=== PATIENT | male | born 1955 | race Caucasian/White ===

== ENCOUNTER 2018-07-25 08:28 | Outpatient (CLI) | payer OTHER ==
[2018-07-25] MEDS ORDERED: GADOBUTROL 10 MMOL/10 ML VIAL ONE (08:37)
[2018-07-25] MEDS ORDERED: GADOBUTROL 10 MMOL/10 ML VIAL IVP ONE (10:28)
--- NOTE | 2018-07-25 12:44 | MRI Report ---
Reason: DISORDER OF PITUITARY GLAND, UNSPECIFIED,DIPLOPIA Procedure Date: 07/25/2018 Accession Number: [id number] / [id number] Procedure: MRI - Brain W/WO CPT Code: FULL RESULT: MRI BRAIN WITHOUT AND WITH CONTRAST INDICATION: 63-year-old male with painless, monocular visual loss, diplopia and hypogonadism. Concern for pituitary adenoma or other mass. TECHNIQUE: Imaging of the brain has been performed with additional sequences dedicated towards evaluation of the pituitary gland. Sequences include the followin. Routine T1 sagittal and fat saturated T2 coronal (brain). 2. Axial T1 MP RAGE, FLAIR, T2* and DWI. 3. Thin slice T2 and T1 coronal (sella). 4. 10 mL IV Gadavist. Dynamic pituitary imaging was performed in the coronal plane. In addition, thin slice, high resolution, static, postcontrast T1 sagittal and coronal sequences were performed through the sella. A routine T1 3D MP RAGE axial sequence was also performed through the brain. COMPARISON: None. FINDINGS: Pituitary/sella On T1 sagittal sequence through the brain, there appears to be a normal T1 hyperintense neurohypophysis in the posterior aspect of the sella (see image 12 of series 301). The sella is not enlarged. The pituitary has a normal size for a 63-year-old male. The pituitary gland measures roughly 4 mm in maximal height. There is a subtle T2 hyperintense, markedly T1 hypointense and nonenhancing focus superiorly in the right lateral aspect of the adenohypophysis. It measures about 4 mm in maximal AP (image 7 of series 1301) by roughly 4 mm maximal transverse (image 5 of series 901) and about 2 mm maximal craniocaudad (image 5 series 901). No other focal abnormality is identified within the pituitary. There is minor displacement of the infundibulum towards the left. No asymmetric depression of the sellar floor is demonstrated. The cavernous sinuses and other parasellar structures have a normal appearance. No suprasellar mass is demonstrated. The optic chiasm is normal and noncompressed. Brain There is mild generalized prominence of the cerebral cortical sulci, considered well within normal limits for stated age. Ventricular size is normal. No hydrocephalus. A mild amount of white matter disease is identified in the supratentorial brain, manifested as small T2 hyperintensities that are scattered throughout the frontoparietal white matter. A deep/subcortical distribution predominates. There appears to be little if any involvement of the immediate periventricular regions. Signal intensity of cortex and white matter is otherwise unremarkable. There appear to be flow voids for the main intracranial arteries. No abnormal diffusion restriction is demonstrated. No evidence of acute or chronic hemorrhage on T2* GRE sequence. No enhancing space-occupying mass lesion is demonstrated. No pathologic meningeal or cranial nerve enhancement is identified. There appears to be normal intravascular contrast enhancement in the dural venous sinuses and deep venous structures. Evaluation of the orbits is limited on sequences provided. However, on the T2 coronal sequence from pituitary study, there appears to be asymmetric atrophy involving the intracranial portion of the right optic nerve, extending from posterior margin of the optic canal to the chiasm. There is no evidence of planum sphenoidale meningioma or other compressive lesion. No obvious intraorbital mass or other intraorbital pathology is identified. Mucosal thickening is seen scattered throughout the paranasal sinuses. No air-fluid levels demonstrated. No mastoid or middle ear effusion. Marrow signal intensity of the regional skeletal structures is unremarkable. IMPRESSION: 1. There is a small T2 hyperintense/T1 hypointense and nonenhancing lesion in the superior aspect of the right lateral adenohypophysis as described. This may represent a benign pituitary cyst or could potentially represent a cystic microadenoma. Imaging of the pituitary is otherwise unremarkable. In particular, no suprasellar mass is demonstrated. The optic chiasm is noncompressed. 2. A detailed study of the orbits and optic apparatus has not been performed; however, there does appear to be asymmetric atrophy involving the intracranial segment of the right optic nerve when compared to left optic nerve on the T2 coronal sequence of from pituitary study. No evidence of planum sphenoidale meningioma or other compressive intracranial mass. Limited evaluation of the orbits reveals no obvious intraorbital lesion. 3. A very mild amount of white matter disease is identified in the supratentorial brain, likely representing chronic microangiopathy. 4. Imaging of the brain is otherwise unremarkable.
== END 2018-07-25 08:29 | disposition home or self-care (01) ==
LOC: DI 08:28
PROVIDERS: ATTEND Physician Assistant
DX: E23.7 Disorder of pituitary gland, unspecified (principal); H53.459 Other localized visual field defect, unspecified eye; H53.2 Diplopia; H47.20 Unspecified optic atrophy
CPT/HCPCS: 70553; A9585

== ENCOUNTER 2018-11-12 12:07 | Day surgery (SDC) | payer OTHER ==
[2018-11-12] MEDS ORDERED: BUPIVACAINE 0.25% PF 30 ML VIAL ONE (12:08)
[2018-11-12] MEDS ORDERED: EPINEPHrine 1 MG/ML AMP ONE (12:09)
[2018-11-12] MEDS ORDERED: LACTATED RINGERS 1,000 ML IV ONE (12:13)
[2018-11-12] MEDS ORDERED: ceFAZolin 2 GM/50 ML 2 GM/50 ML BAG IV ONE (12:15)
--- NOTE | 2018-11-12 13:42 | ANESTHESIA ---
Pre-Anesthesia VS, & Labs - Diagnosis left knee meniscus tear - Procedure Left knee scope meniscus debridement Vital Signs: Temp Pulse Resp BP Pulse Ox 36.0 C L 80 16 150/95 H 96 11/12/18 12:24 11/12/18 12:24 11/12/18 12:24 11/12/18 12:24 11/12/18 12:24 Height 5 ft 11 in Weight (kg) 100.7 kg - NPO >8 hours Home Medications and Allergies Home Medications: Ambulatory Orders Latanoprost/Pf [Latanoprost 0.005% Eye Drop] 7.5 ml OP 11/06/18 Timolol 0.5% Ophth Drops [Timoptic 0.5% Ophth Drops] 1 drops OPTH BID 11/06/18 Aspirin [Aspir-Low] 81 mg PO DAILY 02/12/16 Simvastatin [Zocor] 40 mg PO DAILY 02/12/16 Latanoprost/Pf [Latanoprost 0.005% Eye Drop] 7.5 ml OP 11/06/18 Timolol 0.5% Ophth Drops [Timoptic 0.5% Ophth Drops] 1 drops OPTH BID 11/06/18 Vit. C Allergies/Adverse Reactions: Allergies Allergy/AdvReac Type Severity Reaction Status Date / Time atorvastatin Allergy Anxiety Verified 11/06/18 08:41 Anes History & Medical History - Anesthetic History Family history of Anesthesia Complications: Denies Family history of Malignant Hyperthermia: Denies - Medical History Cardiovascular: reports: High cholesterol Pulmonary: reports: None Gastrointestinal: reports: None Urinary: reports: None Neuro: reports: None Musculoskeletal: reports: None Endocrine/Autoimmune: reports: None Blood Disorders: reports: None Skin: reports: None Smoking Status: Never smoker Psychosocial: reports: Alcohol ( 2 drinks/day), Other (history of PTSD) - Surgical History General: Colonoscopy Exam General: Alert, Oriented x3, Cooperative, No acute distress Dental: WNL Mouth Openin Fingerbreadth Neck Mobility: Normal Mallampati classification: II Thyromental Distance: 4-6 cm Respiratory: Lungs clear, Normal breath sounds, No respiratory distress, No accessory muscle use Cardiovascular: Regular rate, Normal S1, Normal S2, No murmurs Mental/Cognitive Status: Alert/Oriented X3, Normal for patient Plan Anesthesia Type: General Consent for Procedure(s) Verified and Reviewed: Yes Code Status: Attempt Resuscitation ASA classification: 2-Mild systemic disease Is this case an emergency?: No
[2018-11-12] MEDS ORDERED: EPINEPHrine 1 MG/ML AMP IR ONE (15:42)
[2018-11-12] MEDS ORDERED: BUPIVACAINE 0.25% PF 30 ML VIAL SUBQ ONE (15:42)
[2018-11-12] MEDS ORDERED: KETOROLAC 30 MG/ML VIAL IVP ONE (16:41)
[2018-11-12] MEDS ORDERED: MIDAZOLAM 2 MG/2 ML VIAL IVP ONE (16:41)
[2018-11-12] MEDS ORDERED: ONDANSETRON 4 MG/2 ML VIAL IVP ONE (16:41)
[2018-11-12] MEDS ORDERED: fentaNYL 100 MCG/2 ML VIAL IVP ONE (16:41)
[2018-11-12] MEDS ORDERED: PROPOFOL 200 MG/20 ML VIAL IVP ONE (16:41)
[2018-11-12] MEDS ORDERED: HYDROmorphone 1 MG/ML CARPUJECT IVP ONE (16:41)
[2018-11-12] MEDS ORDERED: oxyCODONE 5 MG TABLET PO PRN (17:15)
[2018-11-12] MEDS ORDERED: ONDANSETRON 4 MG/2 ML VIAL IVP PRN (17:15)
--- NOTE | 2018-11-12 17:28 | OPERATIVE REPORT ---
Operative Report - General Procedure Date: 11/12/18 Planned Procedure: Left knee arthroscopy and meniscal debridement versus repair Pre-Op Diagnosis: Left knee medial meniscal tear Procedure Performed: Left knee arthroscopy and medial meniscal debridement Post Op Diagnosis: Left knee medial meniscal tear, Patellofemoral and medial compartment arthr - Procedure Note Primary Surgeon: LEYDA CHI Anesthesia Technique: General LMA Estimated Blood Loss (mL): 5 - Other Other Information/Narrative: OPERATION PERFORMED: Left knee arthroscopy medial meniscal debridement Left knee: 1. Patella: Diffuse grade 2 and 3 changes 2. Trochlea: Focal areas of grade 1 and 2 changes 3. Medial Compartment: Diffuse grade 2 and 3 changes medial femoral condyle, medial tibial plateau. Medial meniscal root intact with fraying, complex degenerative tear of the posterior horn of the medial meniscus, with horizontal, vertical, and parrot-beak components. At the anterior portion of the tear, and the meniscal body, a segment of the meniscus had flipped down. Using a combination of sucker shaver and meniscal biters, the torn meniscal tissue was debrided to stable rim. 4. Lateral Compartment: Lateral root intact with mild fraying, lateral meniscus normal appearing without tear, lateral femoral condyle normal-appearing, lateral tibial plateau normal-appearing. 5. ACL and PCL: ACL is robust and intact, PCL is normal COMPLICATIONS: None IMPLANTS: None Tourniquet: approximately 49 minutes, 250 mmHg, left thigh Indications for procedure: The patient is a 63-year-old male who sustained injury to his left knee in June 2018 when he slipped and caught himself. He subsequently had immediate pain and some swelling the pain was focally along the medial knee. An MRI demonstrated a complex tear of the posterior horn of the medial meniscus with a primarily horizontal component with surfacing on the undersurface. He denied antecedent knee pain, despite radiographic and MRI evidence of arthritis. He failed non-operative treatment and desires surgical treatment. The risks, benefits, and alternatives were discussed. Risks included pain, bleeding, infection, damage to nearby structures, lack of symptom relief, implant complications, stiffness, need for further surgeries, DVT, PE, stroke, and even . He signed a written consent form. Procedure Details: The patient was met in the pre-operative hold area. Persistence of symptoms and consent was verified. The patient verified the surgical site as the left knee. The patient then met with anesthesia and was brought back to the operating room. The patient was placed supine on the operating table. A general anesthetic was administered and LMA was placed. A well-padded tourniquet was placed on the left thigh. The left lower extremity was then prepped and draped in the usual sterile fashion. A surgical timeout was then performed. The correct patient, the correct procedure, and the correct surgical site were confirmed by everyone in the room. Perioperative antibiotics had been administered. After surgical timeout and administration of antibiotics the Escmarch was used to exsanguinate the left lower extremity and the tourniquet was raised. An 11 blade scalpel was used to make an anteromedial and anterolateral arthroscopic portal. The arthroscope was introduced into the knee and a diagnostic arthroscopy was performed with the above-stated findings. Meniscal Debridement: The arthroscopic biter and sucker shaver were used to debride the torn meniscal tissue and debride the meniscus back to a stable rim. The arthroscopic probe was used to ensure that the remaining meniscal tissue was stable. The arthroscopic instruments were then removed from the knee. The portals were closed with 3-0 Monocryl. 0.25% Marcaine was injected into the periarticular soft tissues. The incisions were dressed with Xeroform gauze, 4x4 gauze, an ABD and NNAMDI stocking. The tourniquet was lowered. The surgical drapes were removed. The patient was awoken from anesthesia, extubated, transferred to the hospital bed, and taken to the PACU for recovery in good condition. Postoperative plan: 1. Discharge home from the same day surgery facility once the patient has met discharge criteria. 2. Advance weightbearing as tolerated, range of motion as tolerated, and wean from crutches as tolerated as gait normalizes. 3. Return to clinic in 10-14 days. Will start formal PT at that time. 4. Allow advancement of activities as tolerated with full clearance for all activities anticipated in 6-8 weeks postoperatively.
[2018-11-12 18:04] VITALS: BP 126/73
== END 2018-11-12 12:08 | disposition home or self-care (01) ==
LOC: SDS 12:07
PROVIDERS: ATTEND Orthopaedic Surgery
PROC: 0SBD4ZZ Excision of Left Knee Joint, Percutaneous Endoscopic Approach (ICD-10-PCS; principal; 2018-11-12 13:30)
DX: S83.232A Complex tear of medial meniscus, current injury, left knee, initial encounter (principal); M71.22 Synovial cyst of popliteal space [Baker], left knee; M17.12 Unilateral primary osteoarthritis, left knee
CPT/HCPCS: 29881; J0690; J1170; J7120

== ENCOUNTER 2019-03-01 07:23 | Emergency (ER) | payer OTHER ==
[2019-03-01 07:35] VITALS: BP 169/121
[2019-03-01] MEDS ORDERED: CHERRY SYRUP 10 ML UDC PO ONE (07:47)
[2019-03-01] MEDS ORDERED: DEXAMETHASONE 10 MG/ML VIAL PO STA (07:47)
--- NOTE | 2019-03-01 07:50 | ED Physician Documentation ---
PD HPI URI - Stated complaint Stated Complaint: CONGESTION - Chief complaint Chief Complaint: Resp - History obtained from History obtained from: Patient - History of Present Illness Timing - onset: How many days ago (10) Timing duration: Days (10) Timing details: Gradual onset, Still present Associated symptoms: Ear pain, Nasal congestion, Rhinorrhea, Sinus pain, Productive cough, Dyspnea Contributing factors: Sick contact, Travel Improves by: Rest, Medication, MDI/nebulizer Worsened by: Activity Similar symptoms before: Diagnosis (athmatic bronchitis) Recently seen: Clinic - Additional information Additional information: 63-year-old male with a 10-day history of upper respiratory symptoms with cough and congestion has developed yellow and green phlegm and nasal congestion sinus pressure sore teeth ear pain and headache. He is been into see his primary care doctor and has been placed on some pseudoephedrine and Atrovent. He has some improvement in his breathing. Review of Systems Constitutional: denies: Fever Eyes: denies: Decreased vision Ears: reports: Ear pain Nose: reports: Rhinorrhea / runny nose, Congestion, Sinus pressure / pain Throat: reports: Dental pain / toothache. denies: Sore throat Cardiac: denies: Chest pain / pressure, Palpitations Respiratory: reports: Dyspnea, Cough, Wheezing GI: denies: Abdominal Pain, Nausea, Vomiting : denies: Dysuria PD PAST MEDICAL HISTORY - Past Medical History Cardiovascular: High cholesterol Respiratory: None Neuro: None Endocrine/Autoimmune: None GI: None : None HEENT: Glaucoma Psych: None Musculoskeletal: None Derm: None - Past Surgical History Past Surgical History: No General: Colonoscopy - Present Medications Home Medications: Ambulatory Orders Medication Instructions Recorded Confirmed Aspirin [Aspir-Low] 81 mg PO DAILY 02/12/16 03/01/19 Simvastatin [Zocor] 40 mg PO DAILY 02/12/16 03/01/19 Latanoprost/Pf [Latanoprost 0.005% 7.5 ml OP DAILY 11/06/18 03/01/19 Eye Drop] Timolol 0.5% Ophth Drops [Timoptic 1 drops OPTH BID 11/06/18 03/01/19 0.5% Ophth Drops] Azithromycin [Zithromax] 250 mg PO DAILY #6 tablet 03/01/19 Ipratropium [place] [Atrovent Hfa] 1 - 2 puffs INH PRN PRN 03/01/19 03/01/19 - Allergies Allergies/Adverse Reactions: Allergies Allergy/AdvReac Type Severity Reaction Status Date / Time atorvastatin Allergy Anxiety Verified 03/01/19 07:34 - Social History Does the pt smoke?: No Smoking Status: Never smoker Does the pt drink ETOH?: Yes Does the pt have substance abuse?: No - Immunizations Immunizations are current?: Yes - POLST Patient has POLST: No PD ED PE NORMAL - Vitals Vital signs reviewed: Yes (marked hypertension ) - General General: Alert and oriented X 3, No acute distress, Well developed/nourished - HEENT HEENT: Atraumatic, PERRL, EOMI, Moist mucous membranes, Pharynx benign, Dentition benign, Other (both TM's are retracted and minimally inflamed. There is specific tenderness to the right frontal sinus ) - Neck Neck: Supple, no meningeal sign, No bony TTP - Cardiac Cardiac: RRR, No murmur - Respiratory Respiratory: No respiratory distress, Other (clear sounds diminished ) - Abdomen Abdomen: Soft, Non tender - Back Back: No CVA TTP, No spinal TTP - Derm Derm: Normal color, Warm and dry, No rash - Extremities Extremities: No deformity, No edema, No calf tenderness / cord - Neuro Neuro: Alert and oriented X 3, hog feeder 2-12 intact, No motor deficit, No sensory deficit, Normal speech Eye Opening: Spontaneous Motor: Obeys Commands Verbal: Oriented GCS Score: 15 - Psych Psych: Normal mood, Normal affect Results - Vitals Vitals: Vital Signs - 24 hr 03/01/19 07:32 Temperature 35.9 C L Heart Rate 78 Respiratory 20 Rate Blood Pressure 169/121 H O2 Saturation 97 Oxygen O2 Source Room air PD MEDICAL DECISION MAKING - ED course Complexity details: reviewed old records, considered differential, d/w patient ED course: 63-year-old male with acute sinusitis after travel is administered dexamethasone 10 mg orally we will place him on a course of azithromycin. Departure - Departure Disposition: 01 Home, Self Care Clinical Impression: Sinusitis Qualifiers: Sinusitis location: frontal Chronicity: acute Recurrence: non-recurrent Qualified Code(s): J01.10 - Acute frontal sinusitis, unspecified Condition: Stable Instructions: ED Sinusitis Abx Tx Follow-Up: MADELINE POOL [Primary Care Provider] - Prescriptions: Azithromycin [Zithromax] 250 mg PO DAILY #6 tablet
== END 2019-03-01 07:57 | disposition home or self-care (01) ==
LOC: ED 07:23
DX: J01.10 Acute frontal sinusitis, unspecified (principal)
CPT/HCPCS: 99283; A9270

== ENCOUNTER 2021-05-24 08:47 | Day surgery (SDC) | payer MEDICARE, OTHER ==
[~2021-05-24 08:47] MED LIST: BRIMONIDINE 0.2% OPHTH DROPS 5 ML ONE; CYCLOPENTOLATE 1% OPHTH DROPS 2 ML ONE; EPINEPHrine 1 MG/ML AMP ONE; KETOROLAC 0.45% OPHTH DROPS ONE; PHENYLEPHRINE 2.5% OPHTH 2 ML DROPS ONE; PROPARACAINE 0.5% OPHTH DROPS 15 ML ONE; TIMOLOL 0.5% OPHTH DROPS ONE; TRIAMCIN/MOXIFLOX OPHTHALMIC 0.6 ML VIAL IO ONE; VANCOMYCIN OPHTHALMI 8MG/0.8ML 8 MG/0.8 ML SYRINGE IO ONE
--- NOTE | 2021-05-24 09:38 | ANESTHESIA ---
Pre-Anesthesia VS, & Labs - Diagnosis right eye cataract - Procedure right eye CATIOL Vital Signs: Temp Pulse Resp BP Pulse Ox 36.6 C 75 16 162/88 H 98 05/24/21 09:00 05/24/21 09:00 05/24/21 09:00 05/24/21 09:00 05/24/21 09:00 Height: 5 ft 11 in Weight (kg): 99.4 kg Body Mass Index: 30.5 BMI Classification: Obese - NPO >8 hours - Lab Results Lab results reviewed: Yes Home Medications and Allergies Home Medications: Ambulatory Orders Aspirin [Aspirin EC] 1 tab ORAL DAILY 05/24/21 Simvastatin [Zocor] 40 mg PO DAILY 02/12/16 Latanoprost/Pf [Latanoprost 0.005% Eye Drop] 7.5 ml OP DAILY 11/06/18 Timolol 0.5% Ophth Drops [Timoptic 0.5% Ophth Drops] 1 drops OPTH BID 11/06/18 Aspirin [Aspirin EC] 1 tab ORAL DAILY 05/24/21 Allergies/Adverse Reactions: Allergies Allergy/AdvReac Type Severity Reaction Status Date / Time atorvastatin Allergy Anxiety Verified 03/01/19 07:34 Anes History & Medical History - Anesthetic History Anesthesia Complications: reports: No previous complications Family history of Anesthesia Complications: Denies Family history of Malignant Hyperthermia: Denies - Medical History Cardiovascular: reports: High cholesterol Pulmonary: reports: None Gastrointestinal: reports: None Urinary: reports: None Neuro: reports: None Musculoskeletal: reports: None Endocrine/Autoimmune: reports: None Blood Disorders: reports: None Skin: reports: None Smoking Status: Never smoker Psychosocial: reports: Alcohol (2 drinks a day) - Surgical History General: reports: Colonoscopy Exam General: Alert, Oriented x3, Cooperative, No acute distress Dental: WNL Mouth Openin Fingerbreadth Neck Mobility: Normal Mallampati classification: I Respiratory: Lungs clear, Normal breath sounds, No respiratory distress, No accessory muscle use Cardiovascular: Regular rate, Normal S1, Normal S2, No murmurs Plan Anesthesia Type: MAC Consent for Procedure(s) Verified and Reviewed: Yes Code Status: Attempt Resuscitation ASA classification: 2-Mild systemic disease Is this case an emergency?: No
[2021-05-24] MEDS ORDERED: MIDAZOLAM 2 MG/2 ML VIAL ONE (09:57)
[2021-05-24] MEDS ORDERED: EPINEPHrine 1 MG/ML AMP IR ONE (09:59)
[2021-05-24] MEDS ORDERED: BSS/LIDOCAINE/EPINEPHRINE 1 ML SYRINGE IO ONE (09:59)
[2021-05-24] MEDS ORDERED: CHONDR SULF/HYALURONATE SYRINGE IO ONE (09:59)
[2021-05-24] MEDS ORDERED: TIMOLOL 0.5% OPHTH DROPS OPTH ONE (09:59)
[2021-05-24] MEDS ORDERED: BRIMONIDINE 0.2% OPHTH DROPS 5 ML OPTH ONE (09:59)
[2021-05-24] MEDS ORDERED: PROPARACAINE 0.5% OPHTH DROPS 15 ML EACHEYE ONE (10:00)
[2021-05-24] MEDS ORDERED: TRIAMCIN/MOXIFLOX OPHTHALMIC 0.6 ML VIAL IO ONE (10:00)
[2021-05-24] MEDS ORDERED: VANCOMYCIN OPHTHALMI 8MG/0.8ML 8 MG/0.8 ML SYRINGE IO ONE (10:00)
[2021-05-24] MEDS ORDERED: LACTATED RINGERS 700 ML IV ONE (10:25)
--- NOTE | 2021-05-24 10:41 | OPERATIVE REPORT ---
Operative Report - Other Other Information/Narrative: Date of Surgery: 05/24/21 Preop Dx: Visually significant cataract right eye. This was the first cataract surgery. Postop Dx: Same Procedure: Phacoemulsification with posterior chamber intraocular lens implant right eye Surgeon: Dr. 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 Best corrected visual acuity was 20/25 with glare to 20/160 vision in the right eye. Indications for surgery were: - Overall decrease in vision - Difficulty seeing words on a computer screen - Difficulty reading - Difficulty tracking a golf ball The patient was consented at length concerning the risks and benefits of cataract surgery after which the patient expressed a desire to proceed with surgery. Operative Procedure: The patient was taken into OR#3 and placed under monitored anesthesia care. A surgical time-out was conducted confirming correct patient, correct procedure, and correct surgical site. The patient was given topical anesthesia and then prepped and draped in the usual sterile fashion. The eye was entered at the 6 and 3 oclock positions. Intracameral Shugarcaine was injected into the anterior chamber followed by a dispersive viscoelastic. A co ntinuous-tear curvilinear capsulorhexis was performed. The nucleus was hydrodissected and phacoemulsified. The cortex was evacuated using automated infusion and aspiration. A cohesive viscoelastic was injected into the capsular bag and a 20.5 diopter intraocular lens was inserted into the bag. Infusion and aspiration were used to evacuate the viscoelastic materials from the eye. The wounds were hydrated and the eye inflated to physiologic pressure using balanced salt solution. Approximately 0.25ml of a mixture of triamcinolone and moxifloxacin was injected trans-sclerally into the vitreous in the inferotemporal quadrant using a 30 gauge cannula. An additional 0.55ml of a mixture of triamcinolone, moxifloxacin, and vancomycin was injected subconjunctivally in the superior quadrant for infection and inflammation prophylaxis. Wound integrity was checked with Weck-Xochitl sponges. The patient was taken from the operating room in good condition and given post-op instructions.
[2021-05-24 10:44] VITALS: BP 157/85
--- NOTE | 2021-05-24 11:29 | ANESTHESIA POST OP EVALUATION ---
Anesthesia Post Eval - Post Anesthesia Eval Vitals: Last Vital Signs Temp 36.7 C 05/24/21 10:43 Pulse 71 05/24/21 10:43 Resp 16 05/24/21 10:43 BP 157/85 H 05/24/21 10:43 Pulse Ox 97 05/24/21 10:43 CV Function Including HR & BP: Stable Pain Control: Satisfactory Nausea & Vomiting: Negative Mental Status: Baseline Respiratory Status: Airway Patent Hydration Status: Satisfactory Anesthesia Complications: None
== END 2021-05-24 08:48 | disposition home or self-care (01) ==
LOC: SDS 08:47
PROVIDERS: ATTEND Ophthalmology
DX: H25.811 Combined forms of age-related cataract, right eye (principal); H40.20X0 Unspecified primary angle-closure glaucoma, stage unspecified; E66.9 Obesity, unspecified; Z68.30 Body mass index [BMI] 30.0-30.9, adult
CPT/HCPCS: 66984; A9270; J3490; J7120

== ENCOUNTER 2023-08-25 16:01 | Outpatient (CLI) | payer MEDICARE, OTHER ==
--- NOTE | 2023-08-26 09:33 | MRI Report ---
PROCEDURE: KNEE WO - LT INDICATIONS: LEFT KNEE PAIN TECHNIQUE: Noncontrast sagittal PD fast spin echo and T2 fast spin echo with fat saturation, sagittal 3-D gradie nt sequence with fat saturation; coronal T1 spin echo and PD fast spin echo with fat saturation, and axial PD fast spin echo with fat saturation through the knee. COMPARISON: None. FINDINGS: Image quality: Excellent. Menisci: There is peripheral displacement of medial meniscus bowing medial collateral ligament. Comp staci tear involving anterior horn, body and posterior horn of medial meniscus is seen extending to bot h superior and inferior articulating surfaces. The lateral meniscus is intact. Low to moderate grade partial thickness tear involving posterior medial meniscal root ligament is seen. Cruciate ligaments: The anterior cruciate ligament is mildly thickened with intrasubstance T2 hyperi ntense signal. The posterior cruciate ligament is intact. Medial structures: The medial collateral ligament appears thickened near its femoral insertion with intrasubstance T2 hyperintense signal. Visualized portions of the pes anserinus tendons appear normal . No abnormal bursal fluid. Lateral structures: The lateral collateral ligament, long and short heads of the biceps femoris tend on appear intact. The popliteus tendon appears normal; the popliteofibular ligament appears intact. Iliotibial band appears normal. Anterior structures: The quadriceps and patellar tendons appear intact. Patellar alignment is latrell l. No femoral trochlear dysplasia or ventral trochlear prominence. No edema in the infrapatellar fa t pad. Bones and cartilage: Moderate to severe tricompartmental osteoarthritis and chondromalacia is seen mo st notably in medial femoral tibial compartment. Marrow edema is seen in medial femoral condyle weigh tbearing portion and adjacent weight-bearing portion of medial tibial plateau without discrete fractu re line. No acute fracture or dislocation. No suspicious bony lesions. Joint space: There is small to moderate knee joint fluid. There is a Huffman's cyst measures 2.4 x 1.4 x 4.1 cm in size. No gross loose bodies. Normal appearing synovial plicae are incidentally noted. IMPRESSION: 1. Moderate to severe tricompartmental osteoarthritis and chondromalacia most notably in medial femor al tibial compartment. No fracture or dislocation. Likely bony contusion versus changes secondary to osteoarthritis in medial femoral tibial compartment. Small to moderate joint effusion and a Huffman's c yst. No gross loose bodies. 2. Complex tear throughout medial meniscus extending to both superior and inferior articulating surfa carlos. No to moderate grade partial thickness involving posterior medial meniscal root ligament. The la teral meniscus is intact. 3. Degenerative changes in ACL. No ACL rupture. The PCL is intact. 4. Low to moderate grade proximal MCL sprain/partial thickness tear. Reviewed by: Elvis Auguste MD on 08/26/2023 9:31 AM PST Approved by: Elvis Auguste MD on 08/26/2023 9:31 AM PST Station ID: [id number]
== END 2023-08-25 16:02 | disposition home or self-care (01) ==
LOC: DI 16:01
PROVIDERS: ATTEND Student in an Organized Health Care Education/Training Program
DX: M17.12 Unilateral primary osteoarthritis, left knee (principal); M94.262 Chondromalacia, left knee; M25.462 Effusion, left knee; M71.22 Synovial cyst of popliteal space [Baker], left knee; S83.232A Complex tear of medial meniscus, current injury, left knee, initial encounter; S83.412A Sprain of medial collateral ligament of left knee, initial encounter

== ENCOUNTER 2023-12-13 06:22 | Emergency (ER) | payer MEDICARE, OTHER ==
--- NOTE | 2023-12-13 08:04 | ED Physician Documentation ---
PD HPI URI - Stated complaint Stated Complaint: COUGH - Chief complaint Chief Complaint: Resp - History obtained from History obtained from: Patient - History of Present Illness Timing - onset: How many weeks ago (1) Timing duration: Weeks (1) Timing details: Gradual onset, Still present Associated symptoms: Nasal congestion, Rhinorrhea, Productive cough. No: Dyspnea Contributing factors: Sick contact ( sick with similar) Improves by: Rest, Medication Worsened by: Activity Similar symptoms before: Diagnosis (bronchitis/pneumonia) Recently seen: Not recently seen - Additional information Additional information: Previously well 68-year-old Yon Li he has a history of hypertension and hypercholesterolemia and he has recently had a URI that started about 1 week ago with nasal congestion and sore throat. He is now coughing up yellow phlegm that is tinged pink. He has had coughing paroxysms bad enough that he is not able to sleep. He has had similar incident previously which cleared up well with a Z- Nik. He has had COVID 3 times and he has had 6 shots. He tested for COVID at the onset of this illness and it was negative. Review of Systems Constitutional: reports: Sweats. denies: Fever, Chills Eyes: denies: Decreased vision Ears: denies: Ear pain Nose: reports: Rhinorrhea / runny nose, Congestion Throat: reports: Sore throat Cardiac: denies: Chest pain / pressure, Palpitations Respiratory: reports: Cough, Hemoptysis (pink tinged sputum with hard coughing paroxysm). denies: Dyspnea, Wheezing GI: denies: Abdominal Pain, Nausea, Vomiting PD PAST MEDICAL HISTORY - Past Medical History Past Medical History: Yes Cardiovascular: High cholesterol Respiratory: Pneumonia, Other Neuro: None Endocrine/Autoimmune: None GI: None : None HEENT: Glaucoma Psych: None Musculoskeletal: None Derm: None Other Past Medical History: Bronchitis - Past Surgical History Past Surgical History: Yes General: Colonoscopy Ortho: Arthroscopic surgery, Other - Present Medications Home Medications: Ambulatory Orders Medication Instructions Recorded Confirmed Simvastatin [Zocor] 40 mg PO DAILY 02/12/16 12/13/23 Latanoprost/Pf [Latanoprost 0.005% 7.5 ml OP QPM 11/06/18 12/13/23 Eye Drop] Timolol 0.5% Ophth Drops [Timoptic 1 drops OPTH BID 11/06/18 12/13/23 0.5% Ophth Drops] Aspirin [Aspirin EC] 1 tab ORAL DAILY 05/24/21 12/13/23 Azithromycin [Zithromax] 250 mg PO DAILY #6 tablet 12/13/23 Lisinopril [Zestril] 10 mg PO QPM 12/13/23 12/13/23 - Allergies Allergies/Adverse Reactions: Allergies Allergy/AdvReac Type Severity Reaction Status Date / Time atorvastatin Allergy Anxiety Verified 12/13/23 06:38 - Social History Does the pt smoke?: No Smoking Status: Never smoker Does the pt drink ETOH?: Yes ETOH Use: Wine, Liquor Does the pt have substance abuse?: No - Immunizations Immunizations are current?: Yes - POLST Patient has POLST: No PD ED PE NORMAL - Vitals Vital signs reviewed: Yes (hpyertensive) - General General: Alert and oriented X 3, No acute distress, Well developed/nourished, Other (masked male in no distress) - HEENT HEENT: Atraumatic, PERRL, EOMI, Ears normal, Moist mucous membranes, Pharynx benign, Dentition benign - Neck Neck: Supple, no meningeal sign, No bony TTP, Other (Left submandibular adenopathy with minimal tenderness) - Cardiac Cardiac: RRR, No murmur - Respiratory Respiratory: No respiratory distress, Clear bilaterally - Abdomen Abdomen: Normal bowel sounds, Soft, Non tender, Non distended, No organomegaly - Back Back: No CVA TTP, No spinal TTP - Derm Derm: Normal color, Warm and dry, No rash - Extremities Extremities: No deformity, No edema - Neuro Neuro: Alert and oriented X 3, 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 parapertussis DNA (PCR) NOT DETECTED Nasal Coronavir 229E PCR NOT DETECTED Nasal Coronavir HKU1 PCR NOT DETECTED Nasal Coronavir NL63 PCR NOT DETECTED Nasal Coronavir OC43 PCR NOT DETECTED Nasal Enterovir/Rhinovir PCR NOT DETECTED Nasal Influenza B PCR NOT DETECTED Nasal Influenza A PCR NOT DETECTED Nasal Parainfluen 1 PCR NOT DETECTED Nasal Parainfluen 2 PCR NOT DETECTED Nasal Parainfluen 3 PCR NOT DETECTED Nasal Parainfluen 4 PCR NOT DETECTED Nasal RSV (PCR) NOT DETECTED Nasal B.pertussis DNA PCR NOT DETECTED Nasal C.pneumoniae (PCR) NOT DETECTED Cristy Human Metapneumo PCR NOT DETECTED Nasal M.pneumoniae (PCR) NOT DETECTED Nasal SARS-CoV-2 (PCR) NOT DETECTED - Rads (name of study) chest Relevant Findings:: Prelim report reviewed (Impression: No active cardiopulmonary disease demonstrated.), EMP independent interpretation of test PD Medical Decision Making - ED course Complexity details: reviewed old records, reviewed results, re-evaluated patient, considered differential, d/w patient ED course: Yon Samuels presents today with symptoms consistent with viral URI that he now has production of thick yellow phlegm. His viral screen is negative. Chest x- ray is without evidence of infiltrate. Departure - Departure Disposition: Home, Self Care Clinical Impression: Bronchitis Condition: Stable Instructions: ED Upper Resp Infec Abx Tx Follow-Up: CRISTY Mccoy [Provider Group] Prescriptions: Azithromycin [Zithromax] 250 mg PO DAILY #6 tablet Comments: Yon today it looks like the upper respiratory tract infection starting last week has resulted in production of thick phlegm with coughing paroxysms enough to cause some bleeding. This will likely clear up faster with use of antibiotic and I have E scribed some azithromycin to the [facility] in [place]. Our expectations with treatment are improvement in the phlegm and cough day by day. Today we gave you a dose of dexamethasone and that should help within hours. Discharge Date/Time: 12/13/23 08:53
[2023-12-13] MEDS: CHERRY SYRUP 10 ML UDC PO ONE (08:11)
[2023-12-13] MEDS: DEXAMETHASONE 10 MG/ML VIAL PO STA (08:11)
[2023-12-13 08:17] VITALS: BP 158/78; O2SAT 96
--- NOTE | 2023-12-13 08:38 | XRAY Report ---
PROCEDURE: Chest 2V INDICATIONS: cough, dyspnea TECHNIQUE: 2 views of the chest were acquired. COMPARISON: Chest x-ray, 08/02/2016. FINDINGS: Surgical changes and devices: None. Lungs and pleura: No pleural effusions or pneumothorax. Lungs are clear. Mediastinum: Mediastinal contours appear normal. Heart size is normal. Bones and chest wall: No suspicious bony lesions. Overlying soft tissues appear unremarkable. IMPRESSION: No acute cardiopulmonary process. Findings are concordant with preliminary interpretation provided by [facility]. Reviewed by: Jeronimo Harvey MD on 12/13/2023 8:37 AM PDT Approved by: Jeronimo Harvey MD on 12/13/2023 8:37 AM PDT Station ID: [id number]
[2023-12-13 08:44] LABS: B. PARAPERTUSSIS- RESP PCR PAN NOT DETECTED; B. PERTUSSIS- RESP PCR PANEL NOT DETECTED; C. PNEUMONIAE- RESP PCR PANEL NOT DETECTED; CORONAVIRUS 229E-RESP PCR NOT DETECTED; CORONAVIRUS HKU1-RESP PCR NOT DETECTED; CORONAVIRUS NL63-RESP PCR NOT DETECTED; CORONAVIRUS OC43-RESP PCR NOT DETECTED; HUMAN METAPNEUMOVIRUS NOT DETECTED; INFLUENZA A- RESP PCR PANEL NOT DETECTED; INFLUENZA B - RESP PCR PANEL NOT DETECTED; M. PNEUMONIAE- RESP PCR PANEL NOT DETECTED; PARAINFLUENZA VIRUS 1 NOT DETECTED; PARAINFLUENZA VIRUS 2 NOT DETECTED; PARAINFLUENZA VIRUS 3 NOT DETECTED; PARAINFLUENZA VIRUS 4 NOT DETECTED; RHINOVIRUS/ENTEROVIRUS NOT DETECTED; RSV- RESP PCR PANEL NOT DETECTED; SARS-CoV-2 -RESP PCR PANEL NOT DETECTED
== END 2023-12-13 08:53 | disposition home or self-care (01) ==
LOC: ED 06:22
DX: J40 Bronchitis, not specified as acute or chronic (principal)
CPT/HCPCS: 71046; 87633; 99284; A9270

== ENCOUNTER 2024-03-02 12:51 | Outpatient (CLI) | payer MEDICARE, OTHER ==
--- NOTE | 2024-03-02 13:16 | CARDIAC PROCEDURE NOTE ---
Stress Test Report Service Date: 03/02/24 Service Time: 13:15 Ordering Provider: Wendy Contreras NP Indication for Test: Assess chest discomfort. Significant Medical History: Yon is referred for an exercise treadmill test today, to assess chest discomfort that has been present periodically over the past 6 months or so. He believes these episodes began following a stressful situation with his dog, who suddenly accelerated away from him while still on leash, resulting in Yon's feeling as if there was a tear in a pectoral muscle. Recovery from this was very slow but did evolve over several weeks. However he has continued to experienced chest discomfort, some of which is reminiscent of the original muscle pain and other episodes perhaps slightly different. He has remained very active over this interval, including taking some big hikes abroad, one in [place] and one on the [place] in [facility], a 150-mile trip completed over 13 days, that included walking up peaks as high as 500 feet, during which he experienced no chest pain, just fatigue. However, he mentions that certain stressful physical activities undertaken in recent times, such as moving furniture, can bring on the discomfort feeling. He does not recall experiencing significant diaphoresis, GI upset or lightheadedness with his episodes. We discussed his medical regimen that includes daily baby aspirin, simvastatin 40 mg and lisinopril 10 mg, all taken at bedtime. He has been on the aspirin for years along with a variety of statins (with intolerance to atorvastatin) but only recently began taking lisinopril. He has an arm blood pressure cuff for self-monitoring and typically sees AM systolic blood pressures around 140 on his current lisinopril dose, taken at bedtime. Cardiac Risk Factors: Positive for hypertension (treated for the past 4 months), hyperlipidemia (treated for 28 years) and family history of CAD in his father's family (father at age 76 from [place], some uncles with disease issues as well); has "pre- diabetes"; negative for history of tobacco smoking. Type of Stress Test: Exercise Treadmill Test (ETT) Procedure: -Exercise Treadmill Test- After signing informed consent, the patient performed treadmill exercise using a Vinny protocol. The patient exercised for 9 minutes 13 seconds and achieved a peak heart rate of 141 (92 percent predicted maximum heart rate for age), and an estimated workload of 10.5 METS. The test was terminated due to fatigue/shortness of breath and left knee pain. Resting heart rate: 76 Peak heart rate: 141 Normal response to exercise. Resting BP: 169/92 Peak BP: 210/75 (during exercise), 230/67 (in Recovery) Hypertensive at rest with abnormal hypertensive BP response to exercise. Room air oxygen saturation during exercise ranged between 94-96%. Rhythm during exercise: Sinus rhythm throughout, with rare isolated PACs and PVCs (computer indicates 16 PVCs but some of these could be artifact). Symptoms: He described a "pinching" chest discomfort just to the left of his upper sternum, rated as "2-3/10" in severity, during about the last 2 minutes of exercise and fully resolved by 2 minutes into Recovery. EKG at rest showed normal sinus rhythm with minor "scooping" of the ST segments, most notably in leads II,III,aVF and V5-V6. EKG at peak stress showed horizontal/downsloping ST depression of at least 1.0 mm in leads II,III,aVF and V4-V6, meeting diagnostic EKG criteria for ischemia, but with reduced specificity due to the resting ST abnormality present in most of these leads. In Recovery HR normally/rapidly decreased to near resting level (87 bpm at 8:30) with slower decrease of blood pressure (after increase to 230/67 in early Recovery the final measured BP was 166/76 at 8:30 of Recovery). No imaging was ordered with this stress test. ILukasz MD, was present throughout this treadmill stress study and supervised it in its entirety. Summary: 1) Exercise tolerance was above average for age and sex, as evidenced by BONIFACIO of -27%. 2) Abnormal resting EKG, with slight scooping ST depression in many leads. 3) Adequate level of exercise was achieved on this treadmill stress test. 4) Hypertensive resting BP with abnormal hypertensive BP response to exercise. 5) ST depression likely meeting EKG criteria for ischemia was seen at peak stress, but with reduced specificity due to resting abnormalities. 6) No imaging was ordered with this test. Conclusions and Recommendations: 1) Yon had a favorable exercise time, indicating above average exercise capacity for age and gender. However, he described experiencing pinching chest discomfort late in exercise and into early Recovery, with ST depression on EKG that could represent ischemia. 2) However, as alluded to above, the predictive value of his ST depression as a marker of inducible ischemia is reduced, due to resting ST segment abnormalities . The EKG findings could represent inducible ischemia or could be due to his hypertensive state. 3) Given the pinching chest discomfort it is recommended that he undergo either: repeat ETT with echo or radionuclide imaging, or, referral for a formal Cardiology evaluation with consideration of a full array of diagnostic studies as next step. 4) I told him to expect that his elective knee surgery needs to remain on hold pending further definitive cardiac evaluation. 5) I also recommended stepwise transition of lisinopril dosing to AM administration followed by more formal BP evaluation, as well as discussion with his primary provider (Ms Contreras) regarding change from simvastatin to rosuvastatin, that could also be taken simultaneously with lisinopril in the mornings. He should also continue his daily ASA until his ischemia evaluation is decisively concluded.
== END 2024-03-02 12:52 | disposition home or self-care (01) ==
LOC: DI 12:51
PROVIDERS: ATTEND Nurse Practitioner Family
DX: R07.9 Chest pain, unspecified (principal); I10 Essential (primary) hypertension; E78.5 Hyperlipidemia, unspecified; Z82.49 Family history of ischemic heart disease and other diseases of the circulatory system
CPT/HCPCS: 93017